=== PATIENT | male | born 1970 | race Caucasian/White ===

== ENCOUNTER → 2017-01-16 | Outpatient (CLI) | payer BC ==
[~2017-01-16] MED LIST: ADVIL200 MG PO; ALTACE 5MG5 MG PO; ASPIRIN 32325 MG/TAB PO; ASPIRIN E.C. 8181 MG PO; DUO-KAPS1 CAP PO; MULTI VITAMIN W PO; NORCO 325 MG-51 TAB PO; PROZAC40 MG PO; TYLENOL 325MG325 MG PO; XARELTO15 MG PO
== END ==
LOC: COL.VAS 07:48
DX: I82.491 Acute embolism and thrombosis of other specified deep vein of right lower extremity (principal)